=== PATIENT | male | born 1955 | race Caucasian/White ===

== ENCOUNTER 2018-08-11 06:03 | Day surgery (SDC) | payer OTHER, BC ==
[~2018-08-11 06:03] MED LIST: CEFAZOLIN 2 GM/50 ML (PMX) 50 ML IVPB; SOD CHLORIDE 0.9% 1,000 ML IV
[2018-08-11] MEDS: BUPIVACAINE 0.5%/EPI (SDV) 30 ML INJ (07:59)
[2018-08-11] MEDS ORDERED: FENTAnyl 50 MCG/ML VIAL (08:21)
[2018-08-11] MEDS ORDERED: CEFAZOLIN 1 GM INJ (08:21)
[2018-08-11] MEDS ORDERED: MIDAZOLAM 1 MG/ML 2 ML INJ (08:21)
[2018-08-11] MEDS ORDERED: OXYCODONE/ACETAMINOPHEN (5/325) TAB PO ×2 (09:00)
[2018-08-11] MEDS ORDERED: hydrALAzine 20 MG INJ IV (09:00)
[2018-08-11] MEDS ORDERED: MEPERIDINE 25 MG INJ IV (09:00)
[2018-08-11] MEDS ORDERED: EPHEDrine SULFATE 50 MG/5 ML SYG IV (09:00)
[2018-08-11] MEDS ORDERED: FENTAnyl 50 MCG/ML VIAL IV ×3 (09:00)
[2018-08-11] MEDS ORDERED: LABETALOL HCL 20MG INJ IV (09:00)
[2018-08-11] MEDS ORDERED: ONDANSETRON 4 MG INJ IV (09:00)
[2018-08-11] MEDS ORDERED: DIPHENHYDRAMINE 50 MG INJ IV (09:00)
== END 2018-08-11 09:27 | disposition home or self-care (01) ==
LOC: SDS 06:03
DX: L72.0 Epidermal cyst (principal); I12.9 Hypertensive chronic kidney disease with stage 1 through stage 4 chronic kidney disease, or unspecified chronic kidney disease; E11.22 Type 2 diabetes mellitus with diabetic chronic kidney disease; N18.9 Chronic kidney disease, unspecified
CPT/HCPCS: 21930; 82962; 88304